=== PATIENT | female | born 1950 | race Caucasian/White ===

== ENCOUNTER → 2022-06-15 | Outpatient (CLI) | payer MEDICARE, OTHER ==
[~2022-06-15] MED LIST: GADOBUTROL 15 MMOL/15 ML (GADAVIST) VIAL IV ONE
--- NOTE | 2022-06-20 07:55 | Diagnostic Imaging Report ---
EXAMINATION: MRI BREAST BILAT W W/O CON INDICATION: History of left breast cancer treated with chemotherapy. Reported palpable abnormality in the left breast. TECHNIQUE: Utilizing a 1.5 Rox magnet, the patient was placed in the prone position with a dedicated breast coil in place. Axial STIR, T2 fat sat, T1 and T1 fat-sat images are obtained without contrast. Postcontrast high-resolution dynamic images are also obtained. Pre and post contrasted images are then evaluated with [email or web address] for evaluation of possible angiogenesis. 7 mL of Gadavist gadolinium contrast material was administered intravenously. COMPARISON: Mammogram and breast ultrasound exams performed on 09/26/2021. A report no images from a more recent breast ultrasound performed on 06/04/2022. Images from a reported biopsy performed on 10/17/2021 are not available for review. Multiple attempts were made to acquire pertinent imaging exams, which accounts for the delay in final reporting. FINDINGS: The right breast is composed of scattered fibroglandular tissue. The left breast is composed of heterogeneous fibroglandular tissue concentrated in the retroareolar and central portion of the breast, which is asymmetric in appearance relative to the right breast. There is mild background parenchymal enhancement. There is no suspicious mass or non-mass enhancement in either breast. No discrete mass is identified, however, the degree of prominent fibroglandular tissue in the left breast measures at least 3.8 x 4.5 x 5.0 cm. Asymmetric mild skin thickening involves the left breast, without associated abnormal enhancement. There is no axillary or internal mammary adenopathy. IMPRESSION: Although there is no suspicious enhancement in either breast on today's MRI exam, there is asymmetric prominence of fibroglandular tissue throughout the central portion of the left breast. This corresponds with findings on prior mammogram performed in September, and is compatible with patient's diagnosis of invasive lobular carcinoma. Although no discrete tumor mass is identified, it is presumed malignancy involves a large portion of the left breast, spanning from the immediate retroareolar region to the junction of the middle and posterior depth breast. There is mild asymmetric skin thickening involving the left breast, which may be reactive in nature and/or related to treatment changes. No abnormal enhancement is associated with this finding, which can be correlated with physical exam to determine need for skin biopsy to rule out inflammatory cancer. No axillary or internal mammary lymphadenopathy is appreciated. Morphologically normal lymph nodes are demonstrated in the left axilla. The above findings were discussed with the patient's oncologist, Dr. Brody Woo, on 06/19/2022 at 1500 hours. BI-RADS Category 6: Known Biopsy-Proven Malignancy RECOMMENDATIONS: Continued care with oncology and breast surgery. Dictated by: Dictated on workstation # [id number]
== END ==
LOC: RAD 13:15
PROVIDERS: ATTEND Surgery
DX: C50.912 Malignant neoplasm of unspecified site of left female breast (principal); Z92.21 Personal history of antineoplastic chemotherapy
CPT/HCPCS: 77049